=== PATIENT | female | born 1955 | race Caucasian/White ===

== ENCOUNTER → 2017-06-10 | Outpatient (CLI) | payer BC ==
[~2017-06-10] MED LIST: CYMBALTA60 MG PO; LISINOPRIL20 MG PO; PROPRANOLOL HC120 MG PO; RANEXA500 MG PO; XANAX 0.5 MG0.5 MG PO; ZANTAC 150MG T150 MG PO; ZOCOR20 MG PO
== END ==
LOC: RAD 01:42
DX: Z12.31 Encounter for screening mammogram for malignant neoplasm of breast (principal)

== ENCOUNTER 2018-05-08 05:38 | Day surgery (SDC) | payer BC ==
[~2018-05-08] VITALS: Ht 162.6 cm; Wt 77.1 kg
--- NOTE | ~2018-05-08 | EKG ---
[address] [address] ELECTROCARDIOGRAM REPORT Name: DUKE AYON ARNELPERLA Room #: 150-5 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
--- NOTE | ~2018-05-08 | O ---
[facility] [place] [address] OPERATIVE REPORT Name: DUKE AYON Room #: 150-5 [facility] M.R.#: [id number] Admission: 05/08/18 Attend Phys: Xu Briones MD Discharge: Date of : 55 Report #: [id number] THIS REPORT FOR: //name// CC: Xu Epsana DATE OF SERVICE: 05/08/2018 PREOPERATIVE DIAGNOSIS: Left turbinate hypertrophy. POSTOPERATIVE DIAGNOSES: Left turbinate hypertrophy. PROCEDURE: Submucous resection with outfracturing left inferior turbinate. SURGEON: Xu Briones M.D. ANESTHESIA: General LMA. INDICATIONS: See H and P. FINDINGS: Previous significant right inferior turbinate trim was identified. Left turbinate appears not been trimmed and in an adequate fashion compared to the right, moderate hypertrophy was noted. There is a small posterior left septal spur noted as well. TECHNIQUE: After obtaining consent, she was brought to the operating suite, where appropriate timeout was performed. General LMA anesthesia was obtained. Bed was turned 90 degrees. Nose was prepped and draped in usual sterile fashion. Cottonoids soaked with Afrin were placed in the left naris for vasoconstriction. 3 mL of 1% Xylocaine with 1:100,000 epinephrine was used to inject the submucosal surface of the medial and medial inferior portion of the left inferior turbinate, care being made not to inject intravascularly. After waiting several minutes, the pledgets were removed. A small incision was made in the anterior tip of the inferior turbinate on the left side. The submucous plane was developed with the use of a caudal elevator on the inferior and medial surface at the end of the turbinate. Using a microdebrider, submucous resection was performed in the same area to effect. I also trimmed the anterior inferior edge of the turbinate to try to match the appearance of the right inferior turbinate as close as possible. After adequate visual reduction had been obtained, I then outfractured the inferior turbinate with the Norman elevator. This reveals a greatly improved airflow on the left side anteriorly. I met the goals of surgery. A single piece of Merogel was then placed between the septum and the turbinate to prevent any synechia formation against that small spur. She is allowed to wake from anesthesia and transferred to recovery in stable condition. [address] [address] OPERATIVE REPORT Name: DUKE AYON ARTITom [id number]: 05/08/18 Attend Phys: Xu Briones MD Discharge: Date of : 55 Report #: [id number] ESTIMATED BLOOD LOSS: Scant. By: [id number] Xu Briones MD /nt
[~2018-05-08 05:38] MED LIST changes: +BELVIQ10 MG PO; +BIOTIN5000 MCG PO; +CALCIUM CITRAT1 EAC8 PO; +DULOXETINE HCL60 MG PO; +GLUCOPHAGE XR750 MG PO; +IBUPROFEN 200200 M1 PO; +LIPITOR40 MG PO; +OMEPRAZOLE 20 M20 M1 PO; +OMEPRAZOLE20 M1 PO; +TRULICITY0.75 MG/0. SUBQ; +VITAMIN B125000 MCG PO; +VITAMIN C1000 MG PO
[2018-05-08 06:32] VITALS: BP 137/73
== END 2018-05-08 08:50 | disposition home or self-care (01) ==
LOC: TBA 05:38 → OR 05:38 → TBA 05:39 → OR 06:35
DX: J34.3 Hypertrophy of nasal turbinates (principal); I10 Essential (primary) hypertension; E78.5 Hyperlipidemia, unspecified; M79.7 Fibromyalgia; G47.33 Obstructive sleep apnea (adult) (pediatric); F32.9 Major depressive disorder, single episode, unspecified; K21.9 Gastro-esophageal reflux disease without esophagitis; Z87.891 Personal history of nicotine dependence; Z90.49 Acquired absence of other specified parts of digestive tract; Z98.890 Other specified postprocedural states; Z79.899 Other long term (current) drug therapy; Z88.8 Allergy status to other drugs, medicaments and biological substances
CPT/HCPCS: 50010; 50101; 50386; 50398; 51634; 53635; 62110; 62900; 64037; 70005